=== PATIENT | male | born 1970 | race Two or more races ===

== ENCOUNTER 2017-07-03 06:04 | Emergency (ER) | payer OTHER ==
[~2017-07-03] VITALS: Ht 172.7 cm; Wt 104.3 kg
--- NOTE | 2017-07-03 06:10 | NUR ---
TO BED 10 A 46 YO MALE "[facility] C/O CHEST PAIN. 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 BREATHING EVEN AND UNLABORED. CARDIAC AND VS MONITORING ON, COMFORT MEASURES RENDERED. AWAITING FOR ER MD SOLORZANO.
--- NOTE | 2017-07-03 06:15 | NUR ---
DR TRIPLETT AT BEDSIDE TO RASHAD.
[2017-07-03] MEDS ORDERED: METOPROLOL TARTRATE INJ 5 MG/5 ML AMPUL ONE ×3 (06:45→08:28)
[2017-07-03] MEDS ORDERED: ONDANSETRON HCL/PF 4 MG/2 ML VIAL ONE ×3 (06:46→08:20)
[2017-07-03] MEDS ORDERED: MORPHINE SULFATE INJ 4 MG/ML DISP.SYRIN ONE (06:46)
[2017-07-03] MEDS ORDERED: ASPIRIN 81 MG TAB.CHEW ONE (06:46)
--- NOTE | 2017-07-03 06:57 | NUR ---
MEDICATED PATIENT ORDERED BY DR TRIPLETT. CHIEF LIBRARIAN WORK WITH BLIND AT BEDSIDE TO DRAW BLOOD.
[2017-07-03] MEDS ORDERED: MORPHINE SULFATE INJ 2 MG/ML DISP.SYRIN IV ONE ×2 (07:00→08:00)
[2017-07-03] MEDS ORDERED: ASPIRIN 81 MG TAB.CHEW PO ONE (07:00)
[2017-07-03] MEDS ORDERED: METOPROLOL TARTRATE INJ 5 MG/5 ML AMPUL IVP ONE (07:00)
[2017-07-03] MEDS ORDERED: IV NS 0.9% 1,000 ML BAG IV ONE ×2 (07:00→07:30)
[2017-07-03] MEDS ORDERED: ONDANSETRON HCL/PF 4 MG/2 ML VIAL IVP ONE (07:00)
[2017-07-03 07:06] LABS: BASOPHILS % (AUTO) 0.3 % (0.0-2.0); EOSINOPHILS # (AUTO) 0.2 /CMM (0.0-0.7); EOSINOPHILS % (AUTO) 2.3 % (0.0-6.0); HEMATOCRIT 52 % (39-51); HEMOGLOBIN 17.6 g/dL (13.5-17.5); LYMPHOCYTES # (AUTO) 1.9 /CMM (0.8-4.8); LYMPHOCYTES % (AUTO) 20.4 % (20.0-44.0); MEAN CORPUSCULAR HEMOGLOBIN 32 PG (26.0-33.0); MEAN CORPUSCULAR HGB CONC 34 g/dl (31.0-36.0); MEAN CORPUSCULAR VOLUME 93 fL (80-96); MONOCYTES # (AUTO) 0.5 /CMM (0.1-1.30); NEUTROPHILS # (AUTO) 6.8 /CMM (1.8-8.9); PLATELET COUNT (AUTO) 277 /CMM (150-450); RDW COEFFICIENT OF VARIATION 13.2 (11.5-15.0); RED BLOOD CELL COUNT(AUTO) 5.51 MIL/uL (4.5-6.0); WHITE BLOOD COUNT (AUTO) 9.4 K/uL (4.3-11.0)
[2017-07-03 07:18] LABS: CALCIUM, SERUM 8.4 mg/dL (8.5-10.1); CREATININE 0.9 mg/dL (0.6-1.3); POTASSIUM 3.8 mmol/L (3.5-5.1)
[2017-07-03 07:25] LABS: ALBUMIN 3.6 g/dL (3.4-5.0); BILIRUBIN,DIRECT 0.1 mg/dL (0.0-0.2); BILIRUBIN,TOTAL 0.5 mg/dL (0.2-1.0); TOTAL PROTEIN, SERUM 7.6 g/dL (6.4-8.2)
[2017-07-03 07:26] LABS: TROPONIN I 1.425 ng/mL (0.00-0.056)
[2017-07-03] MEDS ORDERED: NTG 50 MG/D5W250 ML BOTTL 250 ML IV ONE (07:30)
[2017-07-03 07:31] LABS: THYROID STIMULATING HORMONE 0.701 uIU/mL (0.358-3.74)
[2017-07-03 07:35] LABS: D-DIMER 0.23 mg/L(FEU (0.17-0.50); PROTHROMBIN TIME 10.7 SECS (9.5-12.7)
[2017-07-03] MEDS ORDERED: HEPARIN INFUSION/D5W 500 ML IV ONE (07:54)
[2017-07-03] MEDS ORDERED: HEPARIN SODIUM, PORCINE 5000 UNITS/1 ML VIAL ONE ×2 (07:54→11:05)
[2017-07-03] MEDS ORDERED: ONDANSETRON HCL/PF - ER 4 MG/2 ML VIAL IV ONE ×2 (08:00→08:30)
[2017-07-03] MEDS ORDERED: HEPARIN INFUSION/D5W 500 ML IV PRN (08:00)
[2017-07-03] MEDS ORDERED: MORPHINE SULFATE INJ 2 MG/ML DISP.SYRIN ONE (08:02)
--- NOTE | 2017-07-03 08:05 | NUR ---
DR. GÓMEZ AT BS FOR EVAL. RECEIVED ORDERS FOR MEDS.
[2017-07-03] MEDS ORDERED: METOPROLOL TARTRATE 50 MG TABLET ONE (08:28)
[2017-07-03] MEDS ORDERED: METOPROLOL TARTRATE INJ 5 MG/5 ML AMPUL IV ONE ×2 (08:30)
[2017-07-03] MEDS ORDERED: HEPARIN SODIUM,PORCINE/PF 50 UNIT/5 ML DISP.SYRIN IV ONE ×2 (08:30)
[2017-07-03] MEDS ORDERED: SPIR50TA3 PO (08:54)
[2017-07-03] MEDS ORDERED: TERA2CAP4 PO (08:54)
[2017-07-03] MEDS ORDERED: HYDR-4077 PO (08:54)
[2017-07-03] MEDS ORDERED: HYDR12.55 PO (08:54)
[2017-07-03] MEDS ORDERED: LABE200T PO (08:54)
[2017-07-03] MEDS ORDERED: LOSA100T15 PO (08:54)
[2017-07-03] MEDS ORDERED: PROMETHAZINE HCL 25 MG/ML AMPUL ONE (09:29)
[2017-07-03] MEDS ORDERED: PROMETHAZINE HCL 25 MG/ML AMPUL IV ONE (09:30)
--- NOTE | 2017-07-03 09:33 | NUR ---
patient sts, he has had no food of drink since last night, instructed not to take any food or drink for a procedure.
[2017-07-03 11:00] VITALS: BP 146/92
--- NOTE | 2017-07-03 11:10 | NUR ---
[facility]
--- NOTE | 2017-07-03 11:19 | NUR ---
REPORT GIVEN TO JACKIE CESPEDES OF [facility].
[2017-07-03] MEDS ORDERED: METOPROLOL TARTRATE 50 MG TABLET PO ONE (12:00)
[2017-07-04] MEDS ORDERED: ASPI81TA2 PO (12:09)
[2017-07-04] MEDS ORDERED: ATOR10TA PO (12:09)
== END 2017-07-03 11:46 | disposition short-term general hospital (02) ==
LOC: ER 06:06
DX: R00.2 Palpitations (principal); I10 Essential (primary) hypertension; R74.8 Abnormal levels of other serum enzymes; R07.9 Chest pain, unspecified; Z79.82 Long term (current) use of aspirin
CPT/HCPCS: 36415; 71010; 80048; 80076; 84443; 84484; 85025; 85378; 85730; 87081; 93005; 96361; 96365; 96366; 96375; 96376; 99285; A4606; G0480; J1642 ×2; J1644 ×3; J2270 ×2; J2405 ×5; J2550; J3490 ×3; J7030 ×2; Z7610

== ENCOUNTER 2017-07-03 16:22 | Inpatient (IN) | payer OTHER ==
[~2017-07-03] VITALS: Ht 170.2 cm; Wt 113.4 kg
[~2017-07-03 16:22] MED LIST: HYDR-4077 PO; HYDR12.55 PO; LABE200T PO; LOSA100T15 PO; SPIR50TA3 PO; TERA2CAP4 PO
--- NOTE | 2017-07-03 16:30 | NUR ---
PT RETURNED FROM [facility] S/P ANGIO CATH AFTER CARDIAC WORK UP AT [facility] ER. PT BREATHING EVEN AND UNLABORED, DENIES CURRENT PAIN AND DISCOMFORT. PATENT IV ON R HAND #20 AND R AC #22 AND R HAND #20. FLUSHED, SECURED. VS STABLE. MD AT BEDSIDE FOR EVAL.
[2017-07-03 16:44] LABS: BASOPHILS # (AUTO) 0.1 /CMM (0.0-0.2); BASOPHILS % (AUTO) 0.6 % (0.0-2.0); EOSINOPHILS # (AUTO) 0.1 /CMM (0.0-0.7); EOSINOPHILS % (AUTO) 0.5 % (0.0-6.0); HEMATOCRIT 52 % (39-51); HEMOGLOBIN 17.5 g/dL (13.5-17.5); LYMPHOCYTES # (AUTO) 1.9 /CMM (0.8-4.8); LYMPHOCYTES % (AUTO) 15.9 % (20.0-44.0); MEAN CORPUSCULAR HEMOGLOBIN 32 PG (26.0-33.0); MEAN CORPUSCULAR HGB CONC 34 g/dl (31.0-36.0); MEAN CORPUSCULAR VOLUME 95 fL (80-96); MONOCYTES # (AUTO) 0.4 /CMM (0.1-1.30); MONOCYTES % (AUTO) 3.5 % (2.0-12.0); NEUTROPHILS # (AUTO) 9.6 /CMM (1.8-8.9); NEUTROPHILS % (AUTO) 79.5 % (43.0-81.0); PLATELET COUNT (AUTO) 259 /CMM (150-450); RDW COEFFICIENT OF VARIATION 12.8 (11.5-15.0); RED BLOOD CELL COUNT(AUTO) 5.44 MIL/uL (4.5-6.0); WHITE BLOOD COUNT (AUTO) 12.1 K/uL (4.3-11.0)
[2017-07-03 16:55] LABS: CALCIUM, SERUM 8.1 mg/dL (8.5-10.1); CREATININE 1.1 mg/dL (0.6-1.3); POTASSIUM 3.7 mmol/L (3.5-5.1)
[2017-07-03 16:58] LABS: INR 1.05 (0.87-1.13); PROTHROMBIN TIME 10.9 SECS (9.5-12.7)
--- NOTE | 2017-07-03 16:59 | NUR ---
REPORT GIVEN TO RUBINA BRYANT FOR DOREEN.
[2017-07-03 17:00] LABS: ALBUMIN 3.4 g/dL (3.4-5.0); BILIRUBIN,DIRECT 0.2 mg/dL (0.0-0.2); BILIRUBIN,TOTAL 0.7 mg/dL (0.2-1.0); TOTAL PROTEIN, SERUM 7.1 g/dL (6.4-8.2)
--- NOTE | 2017-07-03 17:00 | NUR ---
RECEIVED REPORT FROM BILL BRADFORD RN
[2017-07-03 17:18] LABS: TROPONIN I 1.467 ng/mL (0.00-0.056)
--- NOTE | 2017-07-03 17:40 | NUR ---
VENEER DRIER TAILER NOTES PATIENT ADMITTED TO TELE BED ROOM 320-2. PATIENT VITALS SIGNS ARR 152/102, HR 86, TEMP 97.9, O2 97%. NO SIGNS AND SYMPTOMS OF DISTRESS. DENIED PAIN / CHEST PAIN. FAMILY AT BEDSIDE. WILL CONTINUE TO ASSESS AND MONITOR PATIENT
[2017-07-03 18:00] VITALS: BP 152/102
--- NOTE | 2017-07-03 18:20 | NUR ---
RT NOTIFIED OF CPAP MACHINE NEEDED. ORDER IS IN PER YOSHI MCCRARY
[2017-07-03] MEDS ORDERED: NITROGLYCERIN 0.4 MG/TAB BOTTLE SL PRN (18:30)
[2017-07-03] MEDS ORDERED: ACETAMINOPHEN 325 MG TABLET PO PRN (18:30)
[2017-07-03] MEDS ORDERED: HYDROCODONE/APAP 5/325MG 1 EACH TABLET PO PRN (18:30)
[2017-07-03] MEDS ORDERED: LABETALOL HCL 200 MG TABLET PO SCH (18:30)
[2017-07-03] MEDS ORDERED: ONDANSETRON HCL/PF 4 MG/2 ML VIAL IVP PRN (18:30)
[2017-07-03] MEDS ORDERED: MORPHINE SULFATE INJ 2 MG/ML DISP.SYRIN IV PRN (18:30)
[2017-07-03] MEDS ORDERED: MAGNESIUM HYDROXIDE 30 ML UDC PO PRN (18:30)
[2017-07-03] MEDS ORDERED: Z GUARD REMEDY 2 OZ OINT TP PRN (18:30)
[2017-07-03] MEDS ORDERED: MAG HYDROX/AL HYDROX/SIMETH 30 ML UDC PO PRN (18:30)
[2017-07-03] MEDS ORDERED: FUROSEMIDE 40 MG/4 ML VIAL IV ONE (18:30)
[2017-07-03] MEDS: LOSARTAN POTASSIUM 50 MG TABLET PO SCH (18:36)
--- NOTE | 2017-07-03 19:03 | NUR ---
TELE / RN CLOSING NOTES PATIENT IS IN BED. ALERT AND ORIENTED TO NAME, PLACE AND TIME. BREATHING EVEN AND UNLABORED. NO SIGNS AND SYMPTOMS OF SHORTNESS OF BREATH OR DISTRESS NOTED. ON TELE MONITOR SHOWING SINUS RHYTHM 88. IV SITES TKO ARE INTACT AND PATENT. S/P RADIAL ANGIO AT [facility] EARLIER TODAY. BLE EDEMA NON PITTING, RIGHT KELTON EDEMA NON PITTING. SKIN IS INTACT. CPAP FOR NIGHT TIME ORDERED AND PENDING RT, RT NOTIFIED. BED IN LOW AND IN LOCKED POSITION WITH CALL LIGHT IN REACH. TWO SIDE RAILS ARE UP. WILL ENDORSED TO PROJECT STRUCTURAL ENGINEER NURSE TO DOREEN.
--- NOTE | 2017-07-03 19:10 | NUR ---
RN NOTE RECEIVED REPORT. PT AAOX4, NO C/O CP/SOB. IV INTACT AND PATENT, NO DISTRESS NOTED AT THIS TIME. CALL LIGHT IN REACH, WILL CONT TO MONITOR.
[2017-07-03 20:00] VITALS: BP 124/87
--- NOTE | 2017-07-03 21:45 | NUR ---
PT PLACED ON CPAP PER MD ORDER FOR NOC USE. ALARMS SET PER PROTOCOL AND AUDIBLE. CPAP PLUGGED IN TO RED OUTLET. PT AWAKE AND ALERT. NO DISTRESS NOTED. AMBU BAG AT BED SIDE. Addendum: 07/03/17 at 2147 by EMMIE FARIAS RT Amended: Links added.
[2017-07-03] MEDS ORDERED: TERAZOSIN HCL 1 MG CAPSULE PO SCH (22:00)
[2017-07-04] VITALS: BP 120/74
[2017-07-04 04:00] VITALS: BP 140/75
[2017-07-04 06:44] LABS: BASOPHILS % (AUTO) 0.3 % (0.0-2.0); EOSINOPHILS # (AUTO) 0.2 /CMM (0.0-0.7); EOSINOPHILS % (AUTO) 2.1 % (0.0-6.0); HEMATOCRIT 49 % (39-51); HEMOGLOBIN 16.7 g/dL (13.5-17.5); LYMPHOCYTES # (AUTO) 1.9 /CMM (0.8-4.8); LYMPHOCYTES % (AUTO) 18.3 % (20.0-44.0); MEAN CORPUSCULAR HEMOGLOBIN 33 PG (26.0-33.0); MEAN CORPUSCULAR HGB CONC 34 g/dl (31.0-36.0); MEAN CORPUSCULAR VOLUME 95 fL (80-96); MONOCYTES # (AUTO) 0.8 /CMM (0.1-1.30); NEUTROPHILS # (AUTO) 7.5 /CMM (1.8-8.9); NEUTROPHILS % (AUTO) 71.3 % (43.0-81.0); PLATELET COUNT (AUTO) 235 /CMM (150-450); RDW COEFFICIENT OF VARIATION 13.3 (11.5-15.0); RED BLOOD CELL COUNT(AUTO) 5.14 MIL/uL (4.5-6.0); WHITE BLOOD COUNT (AUTO) 10.6 K/uL (4.3-11.0)
[2017-07-04 06:52] VITALS: BP 125/81
--- NOTE | 2017-07-04 07:01 | NUR ---
RN NPTE NO SIGNIFICANT CHANGES T/O SHIFT. PT SLEPT WELL. DENIES CP/SOB. TELE SHOW SR. IV INTACT AND PATENT S/L, NO S/S OF ANY DISTRESS. WILL F/U WITH DAY SHIFT FOR DOREEN.
[2017-07-04 07:27] LABS: CALCIUM, SERUM 8.2 mg/dL (8.5-10.1); CREATININE 1.2 mg/dL (0.6-1.3); MAGNESIUM 1.7 mg/dL (1.8-2.4); PHOSPHORUS 3.3 mg/dL (2.5-4.9); POTASSIUM 3.6 mmol/L (3.5-5.1)
--- NOTE | 2017-07-04 07:32 | NUR ---
RN OPENING NOTES RECIEVED PATIENT IN BED AWAKE RESTING, A/O X 4. NO ACUTE DISTRESS, NO SOB NOTED. DENIES ANY CHEST PAIN OR DISCOMFORT. KEPT PATIENT SAFE AND COMFORTABLE. BED IN LOW POSITION, LOCKED, CALL LIGHT WITHIN REACH. WILL CONTINUE TO MONITOR ACCORDINGLY.
--- NOTE | 2017-07-04 07:36 | NUR ---
RN NOTES DR GÓMEZ ON BEDSIDE CHECKING THE PATIENT.
[2017-07-04 08:00] VITALS: BP 125/81
--- NOTE | 2017-07-04 08:35 | NUR ---
RN NOTES TROPONIN 1.521, DR GÓMEZ AWARE.
[2017-07-04] MEDS: hydrALAZINE HCL 50 MG TABLET PO SCH ×2 (08:48→12:39)
[2017-07-04] MEDS: LOSARTAN POTASSIUM 50 MG TABLET PO SCH (08:49)
[2017-07-04] MEDS ORDERED: SPIRONOLACTONE 25 MG TABLET PO SCH (09:00)
[2017-07-04] MEDS ORDERED: HYDROCHLOROTHIAZIDE 25 MG TABLET PO SCH (09:00)
[2017-07-04] MEDS: Magnesium 1GM/D5W 100ML PREMIX 100 ML IV SCH ×2 (10:03→11:10)
[2017-07-04] MEDS ORDERED: ATOR10TA PO (12:09)
[2017-07-04] MEDS ORDERED: ASPI81TA2 PO (12:09)
[2017-07-04 15:00] VITALS: BP 131/87
--- NOTE | 2017-07-04 16:00 | NUR ---
RN NOTES DISCHARGED PATIENT IN STABLE CONDITION ACCOMPANIED BY FAMILY AND STOCK FITTER, SAYRA, VIA WHEELCHAIR. DISCHARGE INSTRUCTIONS AND EXITCARE DONE. PRESCRIPTION AND DISCHARGE PAPERWORK GIVEN TO PATIENT.
[2017-07-04] MEDS ORDERED: LABETALOL HCL (100MG) 100 MG TABLET PO SCH (20:00)
== END 2017-07-04 15:45 | disposition home or self-care (01) | DRG 282 ==
LOC: EDUNIT# 16:22 → ER 16:24 → TELE 17:07
PROVIDERS: ADMIT Nurse Practitioner Acute Care; ATTEND Nurse Practitioner Acute Care
DX: I21.4 Non-ST elevation (NSTEMI) myocardial infarction (principal); D72.829 Elevated white blood cell count, unspecified; G47.30 Sleep apnea, unspecified; Z79.899 Other long term (current) drug therapy; R73.9 Hyperglycemia, unspecified
CPT/HCPCS: 36415; 80048-TC; 80061-TC; 80076-TC; 83735-TC; 84100-TC; 84484-TC; 85025-TC; 85730-TC; 93307-TC; A4606; J1940; J3475; Z7610